=== PATIENT | female | born 1985 | race Caucasian/White ===

== ENCOUNTER 2016-12-26 09:23 | Emergency (ER) | payer MEDICAID, OTHER ==
[2016-12-26 09:38] VITALS: BP 140/68
[2016-12-26] MEDS ORDERED: Sodium Chloride 0.9% 1,000 ML IV ONE (09:46)
--- NOTE | 2016-12-26 09:54 | EDM.PDOC ---
ED HPI GENERAL MEDICAL PROBLEM - General Chief Complaint: General Stated Complaint: FEVER, FELL ON SATURDAY Time Seen by Provider: 12/26/16 09:45 Source of Information: Reports: Patient History Limitations: Reports: No Limitations - History of Present Illness INITIAL COMMENTS - FREE TEXT/NARRATIVE: This 31 yo female patient reports to the ED due to sweating over the past 4 days. The patient reports she did fall last week while riding a horse. The patient reports some tenderness to her forehead, but she does not have any other problems. The patient also reports she has had loose bowel movements over the past 3 days. The patient admits to smoking marijuana Saturday or Saturday, but denies any other drug or ETOH use. The patient has been taking Tylenol and ibuprofen for temporary symptom relief. The patient reports she attempted to get into see her primary care provider this morning, but was told that Dr. Lantigua was out for the week and instructed to come to the ED. 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 - Related Data Allergies Allergy/AdvReac Type Severity Reaction Status Date / Time No Known Allergies Allergy Verified 09/29/13 22:24 Home Meds: Home Meds Escitalopram [Lexapro] 20 mg PO DAILY 12/26/16 [History] metFORMIN HCl [Metformin HCl] 1,000 mg PO DAILY 12/26/16 [History] Past Medical History - Past Surgical History GI Surgical History: Reports: Cholecystectomy Female Surgical History: Reports: Section Social & Family History - Tobacco Use Smoking Status *Q: Never Smoker - Caffeine Use Caffeine Use: Reports: Coffee, Tea - Recreational Drug Use Recreational Drug Use: Yes Recreational Drug Type: Reports: Marijuana/Hashish ED ROS GENERAL - Review of Systems Review Of Systems: ROS reveals no pertinent complaints other than HPI. ED EXAM, GENERAL - Physical Exam Exam: See Below Exam Limited By: No Limitations General Appearance: Alert, WD/WN, Moderate Distress, Obese Eye Exam: Bilateral Eye: EOMI, Normal Inspection, PERRL Ears: Normal External Exam, Normal Canal, Hearing Grossly Normal, Normal TMs Nose: Normal Inspection, Normal Mucosa, No Blood Throat/Mouth: Normal Inspection, Normal Lips, Normal Teeth, Normal Gums, Normal Oropharynx, Normal Voice, No Airway Compromise Head: Atraumatic, Normocephalic Neck: Normal Inspection, Supple, Non-Tender, Full Range of Motion Respiratory/Chest: No Respiratory Distress, Lungs Clear, Normal Breath Sounds, No Accessory Muscle Use, Chest Non-Tender Cardiovascular: Normal Peripheral Pulses, Regular Rate, Rhythm, No Edema, No Gallop, No JVD, No Murmur, No Rub GI/Abdominal: Normal Bowel Sounds, Soft, Non-Tender, No Organomegaly, No Distention, No Abnormal Bruit, No Mass, Other (obese) (Female) Exam: Deferred Rectal (Female) Exam: Deferred Back Exam: Normal Inspection, Full Range of Motion, NT Extremities: Normal Inspection, Normal Range of Motion, Non-Tender, Normal Capillary Refill, No Pedal Edema Neurological: Alert, Oriented, CN II-XII Intact, Normal Cognition, Normal Gait, Normal Reflexes, No Motor/Sensory Deficits Psychiatric: Normal Affect, Normal Mood Skin Exam: Warm, Intact, Normal Color, No Rash, Diaphoretic Lymphatic: No Adenopathy Course - Vital Signs Last Recorded V/S: Last Vital Signs Temp 36.9 C 12/26/16 09:36 Pulse 122 H 12/26/16 09:36 Resp 20 12/26/16 09:36 BP 140/68 12/26/16 09:36 Pulse Ox 97 12/26/16 09:36 - Orders/Labs/Meds Orders: Active Orders 24 hr Category Date Time Status CULTURE STREP A CONFIRMATION [] Stat Lab 12/26/16 10:12 Results INFLUENZA A+B AG SCREEN [] Stat Lab 12/26/16 09:49 Uncollected STREP SCRN A RAPID W CULT CONF [] Stat Lab 12/26/16 09:49 Uncollected Sodium Chloride 0.9% [Normal Saline] 1,000 ml Med 12/26/16 09:46 Active IV .BOLUS cefTRIAXone [Rocephin] 1 gm Med 12/26/16 10:32 Ordered Sodium Chloride 0.9% [Normal Saline] 50 ml IV ONETIME Medication Orders Sodium Chloride (Normal Saline) 1,000 mls @ 999 mls/hr IV .BOLUS ONE Stop: 12/26/16 10:46 Last Admin: 12/26/16 10:04 Dose: 999 mls/hr Ceftriaxone Sodium 1 gm/ (Sodium Chloride) 50 mls @ 100 mls/hr IV ONETIME ONE Stop: 12/26/16 11:01 Labs: Laboratory Tests 12/26/16 12/26/16 12/26/16 Range/Units 09:57 09:57 09:57 WBC (5.0-10.0) 10^3/uL RBC (4.2-5.4) 10^6/uL Hgb (12.0-16.0) g/dL Hct (37.0-47.0) % MCV (80-100) fL MCH (27.0-34.0) pg MCHC (33.0-35.0) g/dL Plt Count (150-450) 10^3/uL Neut % (Auto) (42.2-75.2) % Lymph % (Auto) (20.5-50.1) % Nicholas % (Auto) (2-8) % Eos % (Auto) (1.0-3.0) % Baso % (Auto) (0.0-1.0) % Sodium (135-145) mmol/L Potassium (3.6-5.0) mmol/L Chloride (101-111) mmol/L Carbon Dioxide (21.0-31.0) mmol/L Anion Gap BUN (7-18) mg/dL Creatinine (0.6-1.3) mg/dL Est Cr Clr Drug Dosing mL/min Estimated GFR (MDRD) BUN/Creatinine Ratio Glucose (74-105) mg/dL Lactic Acid (0.5-2.2) mmol/L Calcium (8.4-10.2) mg/dl Magnesium (1.8-2.5) mg/dL Total Bilirubin (0.2-1.0) mg/dL AST (10-42) IU/L ALT (10-60) IU/L Alkaline Phosphatase (42-121) IU/L Total Protein (6.7-8.2) g/dl Albumin (3.2-5.5) g/dl Globulin Albumin/Globulin Ratio Amylase (28-100) U/L Lipase (22-51) U/L Urine Color Yellow (YELLOW) Urine Appearance Turbid (CLEAR) Urine pH 5.5 (5.0-9.0) Ur Specific [place] 1.015 (1.005-1.030) Urine Protein 100 H (NEGATIVE) Urine Glucose (UA) 100 H (NEGATIVE) Urine Ketones Negative (NEGATIVE) Urine Occult Blood Moderate H (NEGATIVE) Urine Nitrite Positive H (NEGATIVE) Urine Bilirubin Negative (NEGATIVE) Urine Urobilinogen 2.0 H (0.2-1.0) mg/dL Ur Leukocyte Esterase Moderate H (NEGATIVE) Urine RBC 75-100 H /HPF Urine WBC >100 H (0-5/HPF) /HPF Ur Epithelial Cells Moderate H /HPF Amorphous Sediment Many H (0/HPF) /HPF Urine Bacteria Moderate H (0-FEW/HPF) /HPF Urine Mucus Moderate H /LPF Urine HCG, Qual Negative Urine Opiates Screen Negative (NEGATIVE) Ur Oxycodone Screen Negative (NEGATIVE) Urine Methadone Screen Negative (NEGATIVE) Acetaminophen Ur Barbiturates Screen Negative (NEGATIVE) U Tricyclic Antidepress Negative (NEGATIVE) Ur Phencyclidine Scrn Negative (NEGATIVE) Ur Amphetamine Screen Negative (NEGATIVE) U Methamphetamines Scrn Negative (NEGATIVE) Urine MDMA Screen Negative (NEGATIVE) U Benzodiazepines Scrn Negative (NEGATIVE) Urine Cocaine Screen Negative (NEGATIVE) U Marijuana (THC) Screen Positive H (NEGATIVE) Ethyl Alcohol mg/dL 12/26/16 12/26/16 12/26/16 Range/Units 09:58 09:58 09:58 WBC 11.0 H (5.0-10.0) 10^3/uL RBC 4.43 (4.2-5.4) 10^6/uL Hgb 11.7 L (12.0-16.0) g/dL Hct 35.6 L (37.0-47.0) % MCV 80.4 (80-100) fL MCH 26.4 L (27.0-34.0) pg MCHC 32.9 L (33.0-35.0) g/dL Plt Count 171 (150-450) 10^3/uL Neut % (Auto) 81.3 H (42.2-75.2) % Lymph % (Auto) 6.1 L (20.5-50.1) % Nicholas % (Auto) 12.3 H (2-8) % Eos % (Auto) 0.2 L (1.0-3.0) % Baso % (Auto) 0.1 (0.0-1.0) % Sodium 134 L (135-145) mmol/L Potassium 3.3 L (3.6-5.0) mmol/L Chloride 100 L (101-111) mmol/L Carbon Dioxide 22.0 (21.0-31.0) mmol/L Anion Gap 15.3 BUN 8 (7-18) mg/dL Creatinine 1.0 (0.6-1.3) mg/dL Est Cr Clr Drug Dosing 86.53 mL/min Estimated GFR (MDRD) > 60 BUN/Creatinine Ratio 8.00 Glucose 218 H (74-105) mg/dL Lactic Acid 1.3 (0.5-2.2) mmol/L Calcium 8.9 (8.4-10.2) mg/dl Magnesium 1.6 L (1.8-2.5) mg/dL Total Bilirubin 0.8 (0.2-1.0) mg/dL AST 17 (10-42) IU/L ALT 20 (10-60) IU/L Alkaline Phosphatase 82 (42-121) IU/L Total Protein 7.7 (6.7-8.2) g/dl Albumin 3.4 (3.2-5.5) g/dl Globulin 4.3 Albumin/Globulin Ratio 0.79 Amylase 22 L (28-100) U/L Lipase 16 L (22-51) U/L Urine Color (YELLOW) Urine Appearance (CLEAR) Urine pH (5.0-9.0) Ur Specific [place] (1.005-1.030) Urine Protein (NEGATIVE) Urine Glucose (UA) (NEGATIVE) Urine Ketones (NEGATIVE) Urine Occult Blood (NEGATIVE) Urine Nitrite (NEGATIVE) Urine Bilirubin (NEGATIVE) Urine Urobilinogen (0.2-1.0) mg/dL Ur Leukocyte Esterase (NEGATIVE) Urine RBC /HPF Urine WBC (0-5/HPF) /HPF Ur Epithelial Cells /HPF Amorphous Sediment (0/HPF) /HPF Urine Bacteria (0-FEW/HPF) /HPF Urine Mucus /LPF Urine HCG, Qual Urine Opiates Screen (NEGATIVE) Ur Oxycodone Screen (NEGATIVE) Urine Methadone Screen (NEGATIVE) Acetaminophen < 10 Ur Barbiturates Screen (NEGATIVE) U Tricyclic Antidepress (NEGATIVE) Ur Phencyclidine Scrn (NEGATIVE) Ur Amphetamine Screen (NEGATIVE) U Methamphetamines Scrn (NEGATIVE) Urine MDMA Screen (NEGATIVE) U Benzodiazepines Scrn (NEGATIVE) Urine Cocaine Screen (NEGATIVE) U Marijuana (THC) Screen (NEGATIVE) Ethyl Alcohol < 5 mg/dL Meds: Medications Generic Name Dose Route Start Last Admin Trade Name Yuki PRN Reason Stop Dose Admin Sodium Chloride 1,000 mls @ 999 mls/hr 12/26/16 09:46 12/26/16 10:04 Normal Saline IV 12/26/16 10:46 999 mls/hr .BOLUS ONE Administration Ceftriaxone Sodium 1 gm/ 50 mls @ 100 mls/hr 12/26/16 10:32 Sodium Chloride IV 12/26/16 11:01 ONETIME ONE Departure - Departure Time of Disposition: 10:33 Disposition: Home, Self-Care 01 Condition: Fair Clinical Impression: UTI (urinary tract infection) Qualifiers: Urinary tract infection type: site unspecified Hematuria presence: with hematuria Qualified Code(s): N39.0 - Urinary tract infection, site not specified ; R31.9 - Hematuria, unspecified - Discharge Information Instructions: Urinary Tract Infection, Adult, [id number] Forms: ED Department Discharge Care Plan Goals: The patient was advised of the examination and lab results during the visit. The patient will be notified of further lab results (urine culture), if the antibiotic choice does not cover the infection identified. The patient was given 1 liter of IV fluid and IV Rocephin (1 gram) while in the ED. The patient was discharged with a script for Keflex (500 mg) to take 1 by mouth 3 times per day for 7 days. If the patient has any additional symptoms or concerns, the patient should follow-up with her primary care facility or return to the emergency department. - My Orders Last 24 Hours: My Active Orders 12/26/16 09:46 Sodium Chloride 0.9% [Normal Saline] 1,000 ml IV .BOLUS 12/26/16 09:49 INFLUENZA A+B AG SCREEN [RM] Stat STREP SCRN A RAPID W CULT CONF [RM] Stat 12/26/16 10:12 CULTURE STREP A CONFIRMATION [RM] Stat 12/26/16 10:32 cefTRIAXone [Rocephin] 1 gm Sodium Chloride 0.9% [Normal Saline] 50 ml IV ONETIME - Assessment/Plan Last 24 Hours: My Active Orders 12/26/16 09:46 Sodium Chloride 0.9% [Normal Saline] 1,000 ml IV .BOLUS 12/26/16 09:49 INFLUENZA A+B AG SCREEN [] Stat STREP SCRN A RAPID W CULT CONF [] Stat 12/26/16 10:12 CULTURE STREP A CONFIRMATION [] Stat 12/26/16 10:32 cefTRIAXone [Rocephin] 1 gm Sodium Chloride 0.9% [Normal Saline] 50 ml IV ONETIME
[2016-12-26 10:26] LABS: ACETAMINOPHEN < 10; CHLORIDE,CL 100 mmol/L (101-111); SODIUM,NA 134 mmol/L (135-145)
[2016-12-26] MEDS ORDERED: cefTRIAXone 1 GM in Sodium Chloride 0.9% 50 ML IV ONE (10:32)
== END 2016-12-26 11:45 | disposition home or self-care (01) ==
LOC: DL.ED 09:23
DX: N39.0 Urinary tract infection, site not specified (principal); R31.9 Hematuria, unspecified; Z90.49 Acquired absence of other specified parts of digestive tract; Z79.899 Other long term (current) drug therapy
CPT/HCPCS: 36415; 80053; 80305; 81001; 81025; 82150; 83605; 83690; 83735; 85025; 87081; 87086; 87088; 87186; 87430; 96361; 96365; 99283; G0480; J0696; J7030; J7050

== ENCOUNTER 2018-08-27 17:47 | Emergency (ER) | payer MEDICAID ==
[2018-08-27] MEDS ORDERED: Sodium Chloride 0.9% 1,000 ML IV ONE (18:05)
--- NOTE | 2018-08-27 18:06 | EDM.PDOC ---
ED HPI GENERAL MEDICAL PROBLEM - General Stated Complaint: BAD BACK PAIN- CAN HARDLY MOVE Time Seen by Provider: 08/27/18 17:58 Source of Information: Reports: Patient History Limitations: Reports: No Limitations - History of Present Illness INITIAL COMMENTS - FREE TEXT/NARRATIVE: This 32 yo female patient reports to the ED with right lower back pain. The patient reports her back pain started 2 days ago, but got much worse this morning after the patient lifted a box. The patient reports she has a history of kidney stones with similar pain. The patient has taken Aleve 2 times today. 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 Lower Back Pain Score (Numeric/FACES): 10 - Related Data Allergies Allergy/AdvReac Type Severity Reaction Status Date / Time No Known Allergies Allergy Verified 08/27/18 18:18 Home Meds: Home Meds Escitalopram [Lexapro] 20 mg PO DAILY 12/26/16 [History] metFORMIN HCl [Metformin HCl] 1,000 mg PO DAILY 12/26/16 [History] Past Medical History - Past Surgical History GI Surgical History: Reports: Cholecystectomy Female Surgical History: Reports: Section Social & Family History - Caffeine Use Caffeine Use: Reports: Coffee, Tea ED ROS GENERAL - Review of Systems Review Of Systems: ROS reveals no pertinent complaints other than HPI. ED EXAM, RENAL/ - Physical Exam Exam: See Below Exam Limited By: No Limitations General Appearance: Alert, WD/WN, Moderate Distress, Obese Eye Exam: Bilateral Eye: EOMI, Normal Inspection, PERRL Ears: Normal External Exam, Normal Canal, Hearing Grossly Normal, Normal TMs Nose: Normal Inspection, Normal Mucosa, No Blood Throat/Mouth: Normal Inspection, Normal Lips, Normal Teeth, Normal Gums, Normal Oropharynx, Normal Voice, No Airway Compromise Head: Atraumatic, Normocephalic Neck: Normal Inspection Respiratory/Chest: No Respiratory Distress, Lungs Clear, Normal Breath Sounds, No Accessory Muscle Use, Chest Non-Tender Cardiovascular: Normal Peripheral Pulses GI/Abdominal: Normal Bowel Sounds, Soft, Non-Tender, No Organomegaly, No Distention, No Abnormal Bruit, No Mass, Other (obese) (Female) Exam: Deferred Rectal (Female) Exam: Deferred Back Exam: CVA Tenderness (R), Decreased Range of Motion, Paraspinal Tenderness Extremities: Normal Inspection, Normal Range of Motion, Non-Tender, Normal Capillary Refill, No Pedal Edema Neurological: Alert, Oriented, CN II-XII Intact, Normal Cognition, Normal Gait, Normal Reflexes, No Motor/Sensory Deficits Psychiatric: Normal Affect, Normal Mood Skin Exam: Warm, Dry, Intact, Normal Color, No Rash Lymphatic: No Adenopathy Course - Vital Signs Last Recorded V/S: Last Vital Signs Temp 36.6 C 08/27/18 18:01 Pulse 101 H 08/27/18 18:01 Resp 16 08/27/18 18:01 BP 123/73 08/27/18 18:01 Pulse Ox 100 08/27/18 18:01 - Orders/Labs/Meds Orders: Active Orders 24 hr Category Date Time Status Abdomen Pelvis wo Cont [CT] Urgent Exams 08/27/18 18:09 Ordered CULTURE URINE [RM] Stat Lab 08/27/18 17:49 Received Sodium Chloride 0.9% [Normal Saline] 1,000 ml Med 08/27/18 18:05 Ordered IV .BOLUS Medication Orders Sodium Chloride (Normal Saline) 1,000 mls @ 999 mls/hr IV .BOLUS ONE Stop: 08/27/18 19:05 Last Admin: 08/27/18 18:16 Dose: 999 mls/hr Labs: Laboratory Tests 08/27/18 08/27/18 08/27/18 Range/Units 17:49 17:49 17:49 Urine Color Red (YELLOW) Urine Appearance Cloudy (CLEAR) Urine pH 8.0 (5.0-9.0) Ur Specific [place] 1.025 (1.005-1.030) Urine Protein >=300 H (NEGATIVE) Urine Glucose (UA) Negative (NEGATIVE) Urine Ketones Negative (NEGATIVE) Urine Occult Blood Large H (NEGATIVE) Urine Nitrite Negative (NEGATIVE) Urine Bilirubin Small H (NEGATIVE) Urine Urobilinogen 1.0 (0.2-1.0) mg/dL Ur Leukocyte Esterase Trace H (NEGATIVE) Urine RBC Packed H /HPF Urine WBC 5-10 H (0-5/HPF) /HPF Ur Epithelial Cells Few /HPF Urine Bacteria Few (0-FEW/HPF) /HPF Urine HCG, Qual Negative Urine Opiates Screen Negative (NEGATIVE) Ur Oxycodone Screen Negative (NEGATIVE) Urine Methadone Screen Negative (NEGATIVE) Ur Barbiturates Screen Negative (NEGATIVE) U Tricyclic Antidepress Negative (NEGATIVE) Ur Phencyclidine Scrn Negative (NEGATIVE) Ur Amphetamine Screen Negative (NEGATIVE) U Methamphetamines Scrn Negative (NEGATIVE) Urine MDMA Screen Negative (NEGATIVE) U Benzodiazepines Scrn Negative (NEGATIVE) Urine Cocaine Screen Negative (NEGATIVE) U Marijuana (THC) Screen Positive H (NEGATIVE) Meds: Medications Generic Name Dose Route Start Last Admin Trade Name Freq PRN Reason Stop Dose Admin Sodium Chloride 1,000 mls @ 999 mls/hr 08/27/18 18:05 08/27/18 18:16 Normal Saline IV 08/27/18 19:05 999 mls/hr .BOLUS ONE Administration Discontinued Medications Generic Name Dose Route Start Last Admin Trade Name Freq PRN Reason Stop Dose Admin Ketorolac Tromethamine 30 mg 08/27/18 18:10 08/27/18 18:15 Toradol IVPUSH 08/27/18 18:11 30 mg ONETIME ONE Administration Departure - Departure Time of Disposition: 18:48 Disposition: Home, Self-Care 01 Clinical Impression: Right low back pain Qualifiers: Chronicity: acute Sciatica presence: without sciatica Qualified Code(s): M54.5 - Low back pain - Discharge Information *PRESCRIPTION DRUG MONITORING PROGRAM REVIEWED*: Not Applicable *COPY OF PRESCRIPTION DRUG MONITORING REPORT IN PATIENT ERNST: Not Applicable Instructions: Muscle Strain, [id number], Back Injury Prevention, [id number] Forms: ED Department Discharge Care Plan Goals: The patient was advised of the examination results during the visit. The patient was given a dose of IV Toradol (30 mg) while in the ED. The patient was discharged with scripts for Toradol (10 mg) #20 to take 1 by mouth every 6 hours and Flexeril (10 mg) #12 to take 1 by mouth at bedtime as needed. If the patient has any additional symptoms or concerns, the patient should either return to the emergency department or visit his primary care facility. - My Orders Last 24 Hours: My Active Orders 08/27/18 17:49 CULTURE URINE [RM] Stat 08/27/18 18:05 Sodium Chloride 0.9% [Normal Saline] 1,000 ml IV .BOLUS 08/27/18 18:09 Abdomen Pelvis wo Cont [CT] Urgent - Assessment/Plan Last 24 Hours: My Active Orders 08/27/18 17:49 CULTURE URINE [RM] Stat 08/27/18 18:05 Sodium Chloride 0.9% [Normal Saline] 1,000 ml IV .BOLUS 08/27/18 18:09 Abdomen Pelvis wo Cont [CT] Urgent
[2018-08-27] MEDS ORDERED: Ketorolac 30 MG/ML SDV IVPUSH ONE (18:10)
[2018-08-27 18:12] VITALS: BP 123/73
== END 2018-08-27 18:55 | disposition home or self-care (01) ==
LOC: DL.ED 17:47
DX: M54.5 Low back pain (principal); Z79.899 Other long term (current) drug therapy
CPT/HCPCS: 74176; 80305-QW; 81001; 81025; 87086; 96361; 96374; 99284-25; J1885; J7030

== ENCOUNTER 2023-12-08 16:27 | Emergency (ER) | payer SELFPAY ==
[2023-12-08 16:59] VITALS: BP 165/115; PULSE 121
[2023-12-08] MEDS: predniSONE 20 MG Tab PO ONE (17:07)
[2023-12-08] MEDS: valACYclovir 1,000 MG Tab PO ONE (17:07)
[2023-12-08] MEDS: Take Home: predniSONE 20 MG, 4 Tab Pack PO ONE (17:21)
== END 2023-12-08 17:29 | disposition home or self-care (01) ==
LOC: DL.ED 16:27
DX: G51.0 Bell's palsy (principal); Z90.49 Acquired absence of other specified parts of digestive tract
CPT/HCPCS: 99283; A9270; J7512

== ENCOUNTER 2024-08-13 11:57 | Emergency (ER) | payer SELFPAY ==
[2024-08-13] MEDS ORDERED: Sodium Chloride 0.9% 10 ML Syringe FLUSH PRN (12:23)
[2024-08-13] MEDS: Sodium Chloride 0.9% 1,000 ML IV ONE (12:43)
[2024-08-13] MEDS: Ondansetron 4 MG/2 ML SDV IVPUSH ONE (12:43)
[2024-08-13] MEDS: Ketorolac 30 MG/ML SDV IVPUSH ONE (12:43)
[2024-08-13 13:28] VITALS: BP 184/75; PULSE 133
== END 2024-08-13 13:35 | disposition home or self-care (01) ==
LOC: DL.ED 11:57
DX: B34.9 Viral infection, unspecified (principal); Z90.49 Acquired absence of other specified parts of digestive tract
CPT/HCPCS: 87428; 96361; 96374; 96375; 99283; 99284; J1885; J2405; J7030